=== PATIENT | male | born 1980 | race Caucasian/White ===

== ENCOUNTER 2025-01-04 06:54 | Outpatient (CLI) | payer MEDICAID ==
[2025-01-04 08:34] VITALS: PULSE 56; RESP 16; O2SAT 96
--- NOTE | 2025-01-04 16:28 | PROCEDURE NOTE - Respiratory ---
Procedure Note-Respiratory Providers to CC Copies To 1: WILMER RENEE Procedure Name: This is a complete pulmonary function study dated January 04, 2025. Spirometry measurements: The forced vital capacity is normal. The FEV1 is clearly reduced. The FEV1 ratio is also reduced. All of the measured flow rates show reduction. Bronchodilator was not administered as part of the study. Lung volume measurements: The total lung capacity is in the normal range. The functional residual capacity and the residual volume measurements are somewhat elevated. This indicates some degree of air trapping within the lungs. Lung diffusion measurement: The DLCO measurement is at the lower limit of n ormal. The KVO measurement is somewhat reduced. The alveolar volume measurement is normal. Airway resistance measurement: The airway resistance shows no elevation. Overall conclusion: This study is abnormal. There is evidence for moderate severity obstructive ventilatory defect. 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 It is strongly recommended that the patient abstain from cigarette smoking. Bronchodilator therapy should be continued for this patient. We have no previous studies for comparison. The borderline reduction in the DLCO measurements suggests this patient may be showing early signs of emphysema. Close pulmonary follow-up is recommended. FADY PEREZ MD Jan 04, 2025 16:28
== END 2025-01-04 23:59 | disposition home or self-care (01) ==
LOC: RT 06:54
PROVIDERS: ATTEND Internal Medicine
DX: R06.00 Dyspnea, unspecified (principal); I25.84 Coronary atherosclerosis due to calcified coronary lesion
CPT/HCPCS: 94010; 94727; 94729; 94760